=== PATIENT | female | born 1990 | race Two or more races ===

== ENCOUNTER 2023-03-25 08:39 | Emergency (ER) | payer OTHER ==
[~2023-03-25] VITALS: Ht 144.8 cm; Wt 55.0 kg
[2023-03-25 09:21] VITALS: BP 104/77
[2023-03-25] MEDS ORDERED: TETANUS-DIPTH-ACEL PERTUSSIS 0.5ML SYR Tdap IM ONE (09:30)
[2023-03-25] MEDS ORDERED: CEPH500T PO (10:17)
== END 2023-03-25 10:49 | disposition home or self-care (01) ==
LOC: ER 08:39
DX: S61.111A Laceration without foreign body of right thumb with damage to nail, initial encounter (principal); W26.8XXA Contact with other sharp object(s), not elsewhere classified, initial encounter; Y93.89 Activity, other specified; Y92.89 Other specified places as the place of occurrence of the external cause; Y99.8 Other external cause status
CPT/HCPCS: 12001; 73140; 90471; 90715